=== PATIENT | male | born 2000 | race Caucasian/White ===

== ENCOUNTER → 2022-05-04 | Outpatient (CLI) | payer OTHER | LOC: MHCPAIN 08:09 | DX: M47.817 Spondylosis without myelopathy or radiculopathy, lumbosacral region (principal); M53.3 Sacrococcygeal disorders, not elsewhere classified; M54.16 Radiculopathy, lumbar region | CPT/HCPCS: J1100; Q9967 ==

== ENCOUNTER → 2022-05-24 | Outpatient (CLI) | payer OTHER | LOC: MHCPAIN 14:22 | DX: M47.896 Other spondylosis, lumbar region (principal); M54.16 Radiculopathy, lumbar region | CPT/HCPCS: G0463 ==